=== PATIENT | male | born 1980 | race Caucasian/White ===

== ENCOUNTER 2017-08-17 20:02 | Observation (INO) | payer SELFPAY ==
[~2017-08-17] VITALS: Ht 170.2 cm; Wt 62.2 kg
--- NOTE | 2017-08-17 20:13 | ED.ADGEN ---
Past History Past Medical History: Alcoholism, Other Adult General Chief Complaint Chief Complaint " Fuck it..." HPI HPI Patient is a 36 year old male who presents with above hx early release from [facility] today and then failing to show for court this afternoon.. Pt. was found passed out on lawn by concerned citizen. Pt. admits to heavy ETOH use today. Pt combative with paramedics and nursing staff. Pt. has past hx of Polysubstance abuse. Review of Systems Review of Systems Constitutional: Denies fever or chills [] Eyes: Denies change in visual acuity, redness, or eye pain [] HENT: Denies nasal congestion or sore throat [] Respiratory: Denies cough or shortness of breath [] Cardiovascular: No additional information not addressed in HPI [] GI: Denies abdominal pain, nausea, vomiting, bloody stools or diarrhea [] : Denies dysuria or hematuria [] Musculoskeletal: Denies back pain or joint pain [] Integument: Denies rash or skin lesions [] Neurologic: Denies headache, focal weakness or sensory changes [] Endocrine: Denies polyuria or polydipsia [] All other systems were reviewed and found to be within normal limits, except as documented in this note. Family History Family History Not currently available Current Medications Current Medications Current Medications Medications (Trade) Dose Ordered Sig/Hari Start Time Stop Time Status Last Admin Dose Admin Diphenhydramine HCl (Benadryl) 50 mg 1X ONCE 08/17/17 20:30 08/17/17 20:31 DC 08/17/17 20:36 50 MG Lorazepam (Ativan) 2 mg 1X ONCE 08/17/17 21:00 08/17/17 21:01 DC 08/17/17 20:41 2 MG Multivitamins/ Minerals 10 ml/ Folic Acid 1 mg/ Thiamine HCl 100 mg/Lactated Ringer's 1,011.1 ml @ 1,000 mls/ hr 1X ONCE 08/17/17 20:30 08/17/17 21:30 DC 08/17/17 20:37 1,000 MLS/HR Ondansetron HCl (Zofran) 4 mg PRN Q4HRS PRN 08/17/17 22:30 08/18/17 08:04 DC Potassium Chloride/Sodium Chloride 1,000 ml @ 75 mls/hr 1X ONCE 08/17/17 22:15 08/18/17 08:04 DC 08/17/17 23:53 75 MLS/HR Ziprasidone (Geodon Im) 20 mg 1X ONCE 08/17/17 20:30 08/17/17 20:31 DC 08/17/17 20:36 20 MG Allergies Allergies Allergies Coded Allergies Type Severity Reaction Last Updated Verified Unable to Assess 02/10/17 No Physical Exam Physical Exam Constitutional: no acute distress, intoxicated in appearance. Smell of alcoholic beverage. HENT: Normocephalic, atraumatic, bilateral external ears normal, oropharynx moist, no oral exudates, nose normal. [] Eyes: PERRLA, EOMI, conjunctiva mild injections, no discharge. [] Neck: Normal range of motion, no tenderness, supple, no stridor. [] Cardiovascular: Tachycardia Heart rate regular rhythm, no murmur [] Lungs & Thorax: Bilateral breath sounds equal at apex with scattered wheezes on auscultation [] Abdomen: Bowel sounds normal, soft, no tenderness, no masses, no pulsatile masses. [] Skin: Warm, dry, no erythema, no rash. [] Back: No tenderness, no CVA tenderness. [] Extremities: No tenderness, no cyanosis, no clubbing, ROM intact, no edema. [] Neurologic: Intoxicated in appearance, movers all ext. , responds to noxious sensory function, no gross focal deficits noted. Discoordinated. Psychologic: Affect depressed, , mood depressed. Current Patient Data Vital Signs Vital Signs Date Time Temp Pulse Resp B/P (MAP) Pulse Ox O2 Delivery O2 Flow Rate FiO2 08/17/17 22:30 72 24 115/63 (80) 98 Room Air 08/17/17 20:10 97.3 Lab Results Laboratory Tests Test 08/17/17 20:15 08/17/17 20:40 White Blood Count 5.0 x10^3/uL (4.0-11.0) Red Blood Count 4.52 x10^6/uL (4.30-5.70) Hemoglobin 14.2 g/dL (13.0-17.5) Hematocrit 40.6 % (39.0-53.0) Mean Corpuscular Volume 90 fL (79-100) Mean Corpuscular Hemoglobin 31 pg (25-35) Mean Corpuscular Hemoglobin Concent 35 g/dL (31-37) Red Cell Distribution Width 12.7 % (11.5-14.5) Platelet Count 319 x10^3/uL (140-400) Neutrophils (%) (Auto) 53 % (31-73) Lymphocytes (%) (Auto) 38 % (24-48) Monocytes (%) (Auto) 7 % (0-9) Eosinophils (%) (Auto) 1 % (0-3) Basophils (%) (Auto) 1 % (0-3) Neutrophils # (Auto) 2.7 x10^3uL (1.8-7.7) Lymphocytes # (Auto) 1.9 x10^3/uL (1.0-4.8) Monocytes # (Auto) 0.3 x10^3/uL (0.0-1.1) Eosinophils # (Auto) 0.1 x10^3/uL (0.0-0.7) Basophils # (Auto) 0.0 x10^3/uL (0.0-0.2) Prothrombin Time < 9.3 SEC (9.4-11.4) L Prothrombin Time INR 0.9 (0.9-1.1) PTT 23 SEC (23-33) Sodium Level 154 mmol/L (136-145) H Potassium Level 3.3 mmol/L (3.5-5.1) L Chloride Level 112 mmol/L (98-107) H Carbon Dioxide Level 30 mmol/L (21-32) Anion Gap 12 (6-14) Blood Urea Nitrogen 11 mg/dL (8-26) Creatinine 1.0 mg/dL (0.7-1.3) Estimated GFR (Cockcroft-Gault) 84.1 Glucose Level 114 mg/dL (70-99) H Lactic Acid Level 2.1 mmol/L (0.4-2.0) H Calcium Level 8.9 mg/dL (8.5-10.1) Magnesium Level 2.7 mg/dL (1.8-2.4) H Creatine Kinase 144 U/L (39-308) Creatine Kinase MB (Mass) 1.0 ng/mL (0.0-3.6) Creatine Kinase MB Relative Index 0.7 % (0-4) Troponin I Quantitative < 0.017 ng/mL (0-0.055) Ethyl Alcohol Level 370 mg/dL (0-10) H Urine Collection Type U cath Urine Color Straw Urine Clarity Clear Urine pH 5.5 Urine Specific [place] <=1.005 Urine Protein Neg (NEG-TRACE) Urine Glucose (UA) Neg mg/dL (NEG) Urine Ketones (Stick) Neg mg/dL (NEG) Urine Blood Neg (NEG) Urine Nitrite Neg (NEG) Urine Bilirubin Neg (NEG) Urine Urobilinogen Dipstick 0.2 mg/dL (0.2 mg/dL) Urine Leukocyte Esterase Neg (NEG) Urine RBC 0 /HPF (0-2) Urine WBC 0 /HPF (0-4) Urine Squamous Epithelial Cells Occ /LPF Urine Bacteria 0 /HPF (0-FEW) Urine Opiates Screen Neg (NEG) Urine Methadone Screen Neg (NEG) Urine Barbiturates Neg (NEG) Urine Phencyclidine Screen Neg (NEG) Urine Amphetamine/Methamphetamine Neg (NEG) Urine Benzodiazepines Screen Neg (NEG) Urine Cocaine Screen Neg (NEG) Urine Cannabinoids Screen Neg (NEG) Urine Ethyl Alcohol Pos (NEG) EKG EKG My interpretation of EKG shows a sinus rhythm at 74 bpm. No acute morphology Radiology/Procedures Radiology/Procedures I interpretation chest x-ray shows prominent pulmonary arteries. But no acute cardiopulmonary findings. No free air in the diaphragm.[] Course & Med Decision Making Course & Med Decision Making Pertinent Labs and Imaging studies reviewed. (See chart for details). Discussed presentation, testing and tx plan Dr. Conklin- will admit until clearing of mentation, and hydration. [] Final Impression Final Impression 1. Mental Status Change 2. Alcohol Abuse[]\\ 3. Hypo kalemia 4. Hypernatremia 5. Hyper magnesium 6. Elevated lactic acid Problems: Dragon Disclaimer Dragon Disclaimer This electronic medical record was generated, in whole or in part, using a voice recognition dictation system. REINALDO MORIN MD Aug 17, 2017 20:13
[2017-08-17] MEDS ORDERED: MVI, ADULT NO.4 WITH VIT K 10 ML, FOLIC ACID SYRINGE for ER 1 MG, THIAMINE 100 MG in IV... IV ONE ×4 (20:30)
[2017-08-17] MEDS ORDERED: diphenhydrAMINE 50 MG/ML VIAL IVP ONE (20:30)
[2017-08-17] MEDS ORDERED: ZIPRASIDONE IM 20 MG VIAL. IM ONE (20:30)
[2017-08-17 20:40] LABS: BASO % 1 % (0-3); EOS # 0.1 x10^3/uL (0.0-0.7); EOS % 1 % (0-3); HEMATOCRIT 40.6 % (39.0-53.0); HEMOGLOBIN 14.2 g/dL (13.0-17.5); LYMPH # 1.9 x10^3/uL (1.0-4.8); LYMPH % 38 % (24-48); MEAN CORPUSCULAR HEMOGLOBIN 31 pg (25-35); MEAN CORPUSCULAR HGB CONC 35 g/dL (31-37); MEAN CORPUSCULAR VOLUME 90 fL (79-100); MONO # 0.3 x10^3/uL (0.0-1.1); MONO % 7 % (0-9); NEUT # 2.7 x10^3uL (1.8-7.7); NEUT % 53 % (31-73); PLATELET COUNT 319 x10^3/uL (140-400); RED BLOOD COUNT 4.52 x10^6/uL (4.30-5.70); RED CELL DISTRIBUTION WIDTH 12.7 % (11.5-14.5)
[2017-08-17] MEDS ORDERED: LORazepam 2 MG/ML VIAL ONE (20:40)
[2017-08-17] MEDS ORDERED: LORazepam 2 MG/ML VIAL IV ONE (21:00)
[2017-08-17 21:02] LABS: CALCIUM 8.9 mg/dL (8.5-10.1); GFR 84.1; MAGNESIUM 2.7 mg/dL (1.8-2.4); POTASSIUM 3.3 mmol/L (3.5-5.1)
[2017-08-17 21:19] LABS: AMPHETAMINE/METHAMPHETAMINE NEG (NEG); BARBITURATES NEG (NEG); BENZODIAZEPINES NEG (NEG); CANNABINOIDS NEG (NEG); COCAINE NEG (NEG); METHADONE NEG (NEG); OPIATES NEG (NEG); PHENCYCLIDINE NEG (NEG)
[2017-08-17 21:23] LABS: BACTERIA,URINE 0 /HPF (0-FEW); BILIRUBIN,URINE NEG (NEG); CLARITY,URINE CLEAR; COLOR,URINE STRAW; GLUCOSE,URINE NEG (NEG); NITRITE,URINE NEG (NEG); RBC,URINE 0 /HPF (0-2); SQUAMOUS EPITHELIAL CELL,UR OCC /LPF; UROBILINOGEN,URINE 0.2 mg/dL (0.2 mg/dL); WBC,URINE 0 /HPF (0-4)
[2017-08-17] MEDS ORDERED: POTASSIUM CL 40MEQ IN 0.9%NACL 1,000 ML IV ONE (22:15)
--- NOTE | 2017-08-17 22:24 | RAD ---
CT Head W/O Contrast: History: Mental status change. Found lying outside local business today. Pt sedated for exam. Exam from 02/10/2017 sent for comparison Comparison: February 10, 2017 Axial images were obtained without contrast. The ventura and white matter appears normal and symmetrical for the patients age. There is no mass effect, extraaxial fluid collections or hydrocephalus. There is no gross bleed. There is no focal loss of ventura-white matter distinction to suggest acute ischemia, i.e. stroke. Impression: No acute findings. End impression CT C-Spine without contrast: Clinical History: Mental status change. Found lying outside local business today. Pt sedated for exam. Exam from 02/10/2017 sent for comparison Technique: Axial helical images of the cervical spine were obtained without contrast, axial coronal and sagittal reconstruction was performed. Findings: There is no loss of vertebral body stature. There is no prevertebral soft tissue swelling. The vertebral bodies are well aligned. The C1-C2 relationship is normal. The visualized osseous structures appear normal. There is straightening of the normal cervical lordosis which can be positional or can be secondary to muscle spasm. Evaluation of the central canal is limited without contrast. Impression: No acute findings. Clinical correlation suggested. PQRS Compliance Statement: One or more of the following individualized dose reduction techniques were utilized for this examination: 1. Automated exposure control 2. Adjustment of the mA and/or kV according to patient size 3. Use of iterative reconstruction technique Electronically signed by: Chris Reyes III, MD (08/17/2017 10:21 PM) [facility]
[2017-08-17] MEDS ORDERED: ONDANSETRON PF 4 MG/2 ML VIAL. IV PRN (22:30)
[2017-08-17] MEDS ORDERED: IV NORMAL SALINE 1,000ML 1,000 ML IV ONE ×2 (22:45)
--- NOTE | 2017-08-17 23:04 | EKG ---
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
[2017-08-18 00:45] VITALS: BP 99/65
[2017-08-18] MEDS ORDERED: LORazepam 2 MG/ML VIAL IV PRN ×2 (01:00)
[2017-08-18 02:40] VITALS: BP 100/55
[2017-08-18 04:18] VITALS: BP 99/53
[2017-08-18 05:40] VITALS: BP 103/57
--- NOTE | 2017-08-18 08:34 | PDOC1 ---
History of Present Illness Reason for Visit: Alcohol intoxication History of Present Illness Pt was admitted to me in the middle of the night from the ER. Several hours later he told the nursing staff that he was not staying and refused blood draws , etc. He left the hospital against medical advice as was reported to me by staff. I didn't have any direct contact with the patient. Chief Complaint: ALCOHOL INTOXICATION Allergies: Coded Allergies: Unable to Assess (Unverified , 02/10/17) MILVIA BOYLE - ALTERED MENTAL STATUS Review of Systems Allergies: Coded Allergies: Unable to Assess (Unverified , 02/10/17) MILVIA BOYLE - ALTERED MENTAL STATUS Medications Current Medications Multivitamins/ Minerals 10 ml/ Folic Acid 1 mg/ Thiamine HCl 100 mg/Lactated Ringer's 1,011.1 ml @ 1,000 mls/ hr 1X ONCE IV Last administered on 20:37; Start 08/17/17 at 20:30; Stop 08/17/17 at 21:30; Status DC Diphenhydramine HCl (Benadryl) 50 mg 1X ONCE IVP Last administered on 20:36; Start 08/17/17 at 20:30; Stop 08/17/17 at 20:31; Status DC Ziprasidone (Geodon Im) 20 mg 1X ONCE IM Last administered on 08/17/17 20:36 ; Start 08/17/17 at 20:30; Stop 08/17/17 at 20:31; Status DC Lorazepam (Ativan) 2 mg STK-MED ONCE .ROUTE ; Start 08/17/17 at 20:40; Stop at 20:41; Status DC Lorazepam (Ativan) 2 mg 1X ONCE IV Last administered on 08/17/17 20:41; Start 08/17/17 at 21:00; Stop 08/17/17 at 21:01; Status DC Potassium Chloride/Sodium Chloride 1,000 ml @ 75 mls/hr 1X ONCE IV Last administered on 08/17/17 23:53; Start 08/17/17 at 22:15; Stop 08/18/17 at 08 :04; Status DC Ondansetron HCl (Zofran) 4 mg PRN Q4HRS PRN IV NAUSEA/VOMITING; Start at 22:30; Stop 08/18/17 at 08:04; Status DC Sodium Chloride 1,000 ml @ 1,000 mls/hr 1X ONCE IV Last administered on 08/17t 21:30; Start 08/17/17 at 22:45; Stop 08/17/17 at 23:44; Status DC Sodium Chloride 1,000 ml @ 160 mls/hr 1X ONCE IV ; Start 08/17/17 at 22:45; Stop 08/18/17 at 04:59; Status DC Lorazepam (Ativan) 2 mg PRN Q1HR PRN IV For CIWA 8-14; Start 08/18/17 at 01:00 ; Stop 08/18/17 at 08:04; Status DC Lorazepam (Ativan) 4 mg PRN Q1HR PRN IV For CIWA 15 or greater; Start at 01:00; Stop 08/18/17 at 08:04; Status DC Exam Vital Signs Vital Signs Date Time Temp Pulse Resp B/P (MAP) Pulse Ox O2 Delivery O2 Flow Rate FiO2 08/18/17 05:40 83 20 103/57 (72) 95 Room Air 08/17/17 20:10 97.3 COURSE Allergies Coded Allergies Type Severity Reaction Last Updated Verified Unable to Assess 02/10/17 No Laboratory Tests Test 08/17/17 20:15 08/17/17 20:40 08/18/17 00:50 White Blood Count 5.0 x10^3/uL (4.0-11.0) Red Blood Count 4.52 x10^6/uL (4.30-5.70) Hemoglobin 14.2 g/dL (13.0-17.5) Hematocrit 40.6 % (39.0-53.0) Mean Corpuscular Volume 90 fL (79-100) Mean Corpuscular Hemoglobin 31 pg (25-35) Mean Corpuscular Hemoglobin Concent 35 g/dL (31-37) Red Cell Distribution Width 12.7 % (11.5-14.5) Platelet Count 319 x10^3/uL (140-400) Neutrophils (%) (Auto) 53 % (31-73) Lymphocytes (%) (Auto) 38 % (24-48) Monocytes (%) (Auto) 7 % (0-9) Eosinophils (%) (Auto) 1 % (0-3) Basophils (%) (Auto) 1 % (0-3) Neutrophils # (Auto) 2.7 x10^3uL (1.8-7.7) Lymphocytes # (Auto) 1.9 x10^3/uL (1.0-4.8) Monocytes # (Auto) 0.3 x10^3/uL (0.0-1.1) Eosinophils # (Auto) 0.1 x10^3/uL (0.0-0.7) Basophils # (Auto) 0.0 x10^3/uL (0.0-0.2) Prothrombin Time < 9.3 SEC (9.4-11.4) Prothromb Time International Ratio 0.9 (0.9-1.1) Activated Partial Thromboplast Time 23 SEC (23-33) Sodium Level 154 mmol/L (136-145) Potassium Level 3.3 mmol/L (3.5-5.1) Chloride Level 112 mmol/L (98-107) Carbon Dioxide Level 30 mmol/L (21-32) Anion Gap 12 (6-14) Blood Urea Nitrogen 11 mg/dL (8-26) Creatinine 1.0 mg/dL (0.7-1.3) Estimated GFR (Cockcroft-Gault) 84.1 Glucose Level 114 mg/dL (70-99) Lactic Acid Level 2.1 mmol/L (0.4-2.0) 2.3 mmol/L (0.4-2.0) Calcium Level 8.9 mg/dL (8.5-10.1) Magnesium Level 2.7 mg/dL (1.8-2.4) Creatine Kinase 144 U/L (39-308) Creatine Kinase MB (Mass) 1.0 ng/mL (0.0-3.6) Creatine Kinase MB Relative Index 0.7 % (0-4) Troponin I Quantitative < 0.017 ng/mL (0-0.055) Ethyl Alcohol Level 370 mg/dL (0-10) Urine Collection Type U cath Urine Color Straw Urine Clarity Clear Urine pH 5.5 Urine Specific [place] <=1.005 Urine Protein Neg (NEG-TRACE) Urine Glucose (UA) Neg mg/dL (NEG) Urine Ketones (Stick) Neg mg/dL (NEG) Urine Blood Neg (NEG) Urine Nitrite Neg (NEG) Urine Bilirubin Neg (NEG) Urine Urobilinogen Dipstick 0.2 mg/dL (0.2 mg/dL) Urine Leukocyte Esterase Neg (NEG) Urine RBC 0 /HPF (0-2) Urine WBC 0 /HPF (0-4) Urine Squamous Epithelial Cells Occ /LPF Urine Bacteria 0 /HPF (0-FEW) Urine Opiates Screen Neg (NEG) Urine Methadone Screen Neg (NEG) Urine Barbiturates Neg (NEG) Urine Phencyclidine Screen Neg (NEG) Urine Amphetamine/Methamphetamine Neg (NEG) Urine Benzodiazepines Screen Neg (NEG) Urine Cocaine Screen Neg (NEG) Urine Cannabinoids Screen Neg (NEG) Urine Ethyl Alcohol Pos (NEG) Current Medications Medications (Trade) Dose Ordered Sig/Hari Route PRN Reason Start Time Stop Time Status Last Admin Dose Admin Multivitamins/ Minerals 10 ml/ Folic Acid 1 mg/ Thiamine HCl 100 mg/Lactated Ringer's 1,011.1 ml @ 1,000 mls/ hr 1X ONCE IV 08/17/17 20:30 08/17/17 21:30 DC 08/17/17 20:37 Diphenhydramine HCl (Benadryl) 50 mg 1X ONCE IVP 08/17/17 20:30 08/17/17 20:31 DC 08/17/17 20:36 Ziprasidone (Geodon Im) 20 mg 1X ONCE IM 08/17/17 20:30 08/17/17 20:31 DC 08/17/17 20:36 Lorazepam (Ativan) 2 mg STK-MED ONCE .ROUTE 08/17/17 20:40 08/17/17 20:41 DC Lorazepam (Ativan) 2 mg 1X ONCE IV 08/17/17 21:00 08/17/17 21:01 DC 08/17/17 20:41 Potassium Chloride/Sodium Chloride 1,000 ml @ 75 mls/hr 1X ONCE IV 08/17/17 22:15 08/18/17 08:04 DC 08/17/17 23:53 Ondansetron HCl (Zofran) 4 mg PRN Q4HRS PRN IV NAUSEA/VOMITING 08/17/17 22:30 08/18/17 08:04 DC Sodium Chloride 1,000 ml @ 1,000 mls/hr 1X ONCE IV 08/17/17 22:45 08/17/17 23:44 DC 08/17/17 21:30 Sodium Chloride 1,000 ml @ 160 mls/hr 1X ONCE IV 08/17/17 22:45 08/18/17 04:59 DC Lorazepam (Ativan) 2 mg PRN Q1HR PRN IV For CIWA 8-14 08/18/17 01:00 08/18/17 08:04 DC Lorazepam (Ativan) 4 mg PRN Q1HR PRN IV For CIWA 15 or greater 08/18/17 01:00 08/18/17 08:04 DC I & O 08/18/17 00:00 Intake Total 3241.1 ml Balance 3241.1 ml Orders Procedure Category Date Status Time Vital Signs ER 08/17/17 Transmitted 20:14 Bp Monitoring ER 08/17/17 Transmitted 20:14 Executive Director Sheltered Workshop ER 08/17/17 Transmitted 20:14 Continuous Pulse ER 08/17/17 Transmitted Oximetry 20:14 Temperature Monitoring ER 08/17/17 Transmitted 20:14 Saline Lock ER 08/17/17 Transmitted 20:14 Landa Catheter ER 08/17/17 Transmitted Insertion 20:14 Basic Metabolic Panel LAB 08/17/17 Complete 20:14 Cbc W Autodiff LAB 08/17/17 Complete 20:14 Ua, Cult If Indicated LAB 08/17/17 Complete 20:14 Drugs Of Abuse Ur LAB 08/17/17 Complete 20:14 Portable Chest 1v RAD 08/17/17 Taken 20:14 12 Lead Ekg EKG 08/17/17 Complete 20:14 Protime LAB 08/17/17 Complete 20:14 Partial LAB 08/17/17 Complete Thromboplastin Time 20:14 Creatine Kinase LAB 08/17/17 Complete 20:14 Ckmb Isoenzymes LAB 08/17/17 Complete 20:14 Troponin I LAB 08/17/17 Complete 20:14 Magnesium LAB 08/17/17 Complete 20:14 Ethanol LAB 08/17/17 Complete 20:14 Restraint BITA 08/17/17 Complete Violent/Self Destruc 20:14 Mvi, Adult No.4 With PHA 08/17/17 Complete Vit K (Infuvite Fortino 20:30 Lactic Acid LAB 08/17/17 Complete 20:18 Blood Culture ABI 08/17/17 In Process 20:18 Diphenhydramine PHA 08/17/17 Complete (Benadryl) 20:30 Ziprasidone Im PHA 08/17/17 Complete (Geodon Im) 20:30 Lorazepam (Ativan) [facility] 08/17/17 Complete 20:40 Ct Head [address] Cervical CT 08/17/17 Resulted Spine Wo 20:14 Lorazepam (Ativan) [facility] 08/17/17 Complete 21:00 Potassium Cl 40meq In [facility] 08/17/17 Complete 0.9%Nacl (Kcl 40 M 22:15 [place] Order ADT 08/17/17 Transmitted 22:29 Code Status CODE 08/17/17 Transmitted 22:29 Vital Signs, Per [facility] 08/17/17 Complete Protocol 22:29 Ambulate With [facility] 08/17/17 Complete Assistance 22:29 Up In Chair With [facility] 08/17/17 Complete Assistance 22:29 Fall Precautions [facility] 08/17/17 Complete 22:29 Ondansetron Pf [facility] 08/17/17 Complete (Zofran) 22:30 Lactic Acid LAB 08/18/17 Complete 00:29 Incentive Spirometer RT 08/17/17 Logged No Pneumatic [facility] 08/17/17 Complete Compression Devic 22:29 Iv Normal Saline [facility] 08/17/17 Complete 1,000ml (Iv Sodium 22:45 Iv Normal Saline [facility] 08/17/17 Complete 1,000ml (Iv Sodium 22:45 Admit Orders [facility] 08/17/17 Transmitted 23:57 Mrsa By Pcr LAB 08/17/17 In Process 23:57 Lorazepam (Ativan) [facility] 08/18/17 Complete 01:00 Lorazepam (Ativan) [facility] 08/18/17 Complete 01:00 Vital Signs, Per [facility] 08/18/17 Complete Protocol 00:58 Vital Signs Date Time Temp Pulse Resp B/P (MAP) Pulse Ox O2 Delivery O2 Flow Rate FiO2 08/18/17 05:40 83 20 103/57 (72) 95 Room Air 08/17/17 20:10 97.3 ADAM LOAIZA MD Aug 18, 2017 08:34
--- NOTE | 2017-08-18 08:37 | PDOC3 ---
Discharge Summary Visit Information Date of Admission: Aug 17, 2017 Date of Discharge: Aug 18, 2017 Admitting Diagnosis: Acute alcohol intoxication Final Diagnosis Problems Medical Problems: (1) Alcohol intoxication Status: Acute (2) Hypernatremia Status: Acute Problems: Brief Hospital Course Allergies Allergies Coded Allergies Type Severity Reaction Last Updated Verified Unable to Assess 02/10/17 No Vital Signs Vital Signs Date Time Temp Pulse Resp B/P (MAP) Pulse Ox O2 Delivery O2 Flow Rate FiO2 08/18/17 05:40 83 20 103/57 (72) 95 Room Air 08/17/17 20:10 97.3 Lab Results Laboratory Tests Test 08/17/17 20:15 08/17/17 20:40 08/18/17 00:50 White Blood Count 5.0 x10^3/uL (4.0-11.0) Red Blood Count 4.52 x10^6/uL (4.30-5.70) Hemoglobin 14.2 g/dL (13.0-17.5) Hematocrit 40.6 % (39.0-53.0) Mean Corpuscular Volume 90 fL (79-100) Mean Corpuscular Hemoglobin 31 pg (25-35) Mean Corpuscular Hemoglobin Concent 35 g/dL (31-37) Red Cell Distribution Width 12.7 % (11.5-14.5) Platelet Count 319 x10^3/uL (140-400) Neutrophils (%) (Auto) 53 % (31-73) Lymphocytes (%) (Auto) 38 % (24-48) Monocytes (%) (Auto) 7 % (0-9) Eosinophils (%) (Auto) 1 % (0-3) Basophils (%) (Auto) 1 % (0-3) Neutrophils # (Auto) 2.7 x10^3uL (1.8-7.7) Lymphocytes # (Auto) 1.9 x10^3/uL (1.0-4.8) Monocytes # (Auto) 0.3 x10^3/uL (0.0-1.1) Eosinophils # (Auto) 0.1 x10^3/uL (0.0-0.7) Basophils # (Auto) 0.0 x10^3/uL (0.0-0.2) Prothrombin Time < 9.3 SEC (9.4-11.4) Prothromb Time International Ratio 0.9 (0.9-1.1) Activated Partial Thromboplast Time 23 SEC (23-33) Sodium Level 154 mmol/L (136-145) Potassium Level 3.3 mmol/L (3.5-5.1) Chloride Level 112 mmol/L (98-107) Carbon Dioxide Level 30 mmol/L (21-32) Anion Gap 12 (6-14) Blood Urea Nitrogen 11 mg/dL (8-26) Creatinine 1.0 mg/dL (0.7-1.3) Estimated GFR (Cockcroft-Gault) 84.1 Glucose Level 114 mg/dL (70-99) Lactic Acid Level 2.1 mmol/L (0.4-2.0) 2.3 mmol/L (0.4-2.0) Calcium Level 8.9 mg/dL (8.5-10.1) Magnesium Level 2.7 mg/dL (1.8-2.4) Creatine Kinase 144 U/L (39-308) Creatine Kinase MB (Mass) 1.0 ng/mL (0.0-3.6) Creatine Kinase MB Relative Index 0.7 % (0-4) Troponin I Quantitative < 0.017 ng/mL (0-0.055) Ethyl Alcohol Level 370 mg/dL (0-10) Urine Collection Type U cath Urine Color Straw Urine Clarity Clear Urine pH 5.5 Urine Specific [place] <=1.005 Urine Protein Neg (NEG-TRACE) Urine Glucose (UA) Neg mg/dL (NEG) Urine Ketones (Stick) Neg mg/dL (NEG) Urine Blood Neg (NEG) Urine Nitrite Neg (NEG) Urine Bilirubin Neg (NEG) Urine Urobilinogen Dipstick 0.2 mg/dL (0.2 mg/dL) Urine Leukocyte Esterase Neg (NEG) Urine RBC 0 /HPF (0-2) Urine WBC 0 /HPF (0-4) Urine Squamous Epithelial Cells Occ /LPF Urine Bacteria 0 /HPF (0-FEW) Urine Opiates Screen Neg (NEG) Urine Methadone Screen Neg (NEG) Urine Barbiturates Neg (NEG) Urine Phencyclidine Screen Neg (NEG) Urine Amphetamine/Methamphetamine Neg (NEG) Urine Benzodiazepines Screen Neg (NEG) Urine Cocaine Screen Neg (NEG) Urine Cannabinoids Screen Neg (NEG) Urine Ethyl Alcohol Pos (NEG) Brief Hospital Course Mr. Rico was admitted through the ER in the middle of the night. He was sedated (per ER) from excessive alcohol intoxication. He was placed on the withdrawal protocol with plans to observe him overnight. This morning, per staff, pt refused blood draws and refused to stay in hospital. He left the hospital against medical advice. I did not have any direct contact with him, he refused to stay until I rounded in the morning. Discharge Information Dischare Medications Current Medications Multivitamins/ Minerals 10 ml/ Folic Acid 1 mg/ Thiamine HCl 100 mg/Lactated Ringer's 1,011.1 ml @ 1,000 mls/ hr 1X ONCE IV Last administered on 20:37; Start 08/17/17 at 20:30; Stop 08/17/17 at 21:30; Status DC Diphenhydramine HCl (Benadryl) 50 mg 1X ONCE IVP Last administered on 20:36; Start 08/17/17 at 20:30; Stop 08/17/17 at 20:31; Status DC Ziprasidone (Geodon Im) 20 mg 1X ONCE IM Last administered on 08/17/17 20:36 ; Start 08/17/17 at 20:30; Stop 08/17/17 at 20:31; Status DC Lorazepam (Ativan) 2 mg STK-MED ONCE .ROUTE ; Start 08/17/17 at 20:40; Stop at 20:41; Status DC Lorazepam (Ativan) 2 mg 1X ONCE IV Last administered on 08/17/17 20:41; Start 08/17/17 at 21:00; Stop 08/17/17 at 21:01; Status DC Potassium Chloride/Sodium Chloride 1,000 ml @ 75 mls/hr 1X ONCE IV Last administered on 08/17/17 23:53; Start 08/17/17 at 22:15; Stop 08/18/17 at 08 :04; Status DC Ondansetron HCl (Zofran) 4 mg PRN Q4HRS PRN IV NAUSEA/VOMITING; Start at 22:30; Stop 08/18/17 at 08:04; Status DC Sodium Chloride 1,000 ml @ 1,000 mls/hr 1X ONCE IV Last administered on 12/15 /17at 21:30; Start 08/17/17 at 22:45; Stop 08/17/17 at 23:44; Status DC Sodium Chloride 1,000 ml @ 160 mls/hr 1X ONCE IV ; Start 08/17/17 at 22:45; Stop 08/18/17 at 04:59; Status DC Lorazepam (Ativan) 2 mg PRN Q1HR PRN IV For CIWA 8-14; Start 08/18/17 at 01:00 ; Stop 08/18/17 at 08:04; Status DC Lorazepam (Ativan) 4 mg PRN Q1HR PRN IV For CIWA 15 or greater; Start at 01:00; Stop 08/18/17 at 08:04; Status DC ADAM LOAIZA MD Aug 18, 2017 08:37
--- NOTE | 2017-08-18 08:40 | RAD ---
Single view chest 08/17/2017 Clinical indication: Altered mental status. Comparison: Single view chest 02/10/2017. Findings: Cardiac and mediastinal silhouettes are unremarkable. No pleural effusion, pneumothorax or focal consolidation. Impression: No acute cardiopulmonary abnormality.
== END 2017-08-18 06:40 | disposition home or self-care (01) ==
LOC: ER 20:02 → MERGE 22:30 → ICU 22:30
PROVIDERS: ADMIT Family Medicine; ATTEND Family Medicine
DX: F10.129 Alcohol abuse with intoxication, unspecified (principal); R41.82 Altered mental status, unspecified; E83.41 Hypermagnesemia; E87.0 Hyperosmolality and hypernatremia; E87.6 Hypokalemia
CPT/HCPCS: 36415; 51702; 70450; 71010; 72125; 80048; 80307; 81001; 82553; 83605; 83735; 84484; 85025; 85610; 85730; 87040; 87641; 93005; 96361; 96365; 96366; 96367; 96372; 96375; 99285; G0238; G0378; G0379; G0480; J1200; J2060; J3486; J7120; G0479; J7030

== ENCOUNTER 2017-08-18 13:39 | Inpatient (IN) | payer SELFPAY ==
[2017-08-18] MEDS ORDERED: IV NORMAL SALINE 1,000ML 1,000 ML IV SCH (13:46)
[2017-08-18] MEDS ORDERED: THIAMINE 100 MG TABLET. PO ONE (14:00)
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
--- NOTE | 2017-08-18 14:05 | EKG ---
[address] [address] Test Date: 2017-08-18 Test Time: 13:59:31 Pat Name: YAAKOV MORRISON Department: Room: Gender: M Header Dock: GARY : 1980 Requested By: LOLA PEREZ Order Number: [id number] Reading MD: Measurements Intervals [place] Rate: 64 P: 30 NH: 162 QRS: 70 QRSD: 110 T: 54 QT: 396 QTc: 413 Interpretive Statements SINUS RHYTHM CONSIDER LEFT VENTRICULAR HYPERTROPHY POSSIBLY ABNORMAL ECG RI6.01 Unconfirmed report No previous ECG available for comparison
[2017-08-18 14:33] LABS: BASO # 0.1 x10^3/uL (0.0-0.2); BASO % 1 % (0-3); EOS # 0.1 x10^3/uL (0.0-0.7); EOS % 1 % (0-3); HEMATOCRIT 36.7 % (39.0-53.0); HEMOGLOBIN 12.9 g/dL (13.0-17.5); LYMPH # 2.1 x10^3/uL (1.0-4.8); LYMPH % 31 % (24-48); MEAN CORPUSCULAR HEMOGLOBIN 31 pg (25-35); MEAN CORPUSCULAR HGB CONC 35 g/dL (31-37); MEAN CORPUSCULAR VOLUME 89 fL (79-100); MONO # 0.4 x10^3/uL (0.0-1.1); MONO % 6 % (0-9); NEUT # 4.2 x10^3uL (1.8-7.7); NEUT % 61 % (31-73); PLATELET COUNT 299 x10^3/uL (140-400); RED BLOOD COUNT 4.12 x10^6/uL (4.30-5.70); RED CELL DISTRIBUTION WIDTH 13.1 % (11.5-14.5); WHITE BLOOD COUNT 6.8 x10^3/uL (4.0-11.0)
[2017-08-18 14:45] LABS: ALBUMIN 3.9 g/dL (3.4-5.0); CALCIUM 8.7 mg/dL (8.5-10.1); CREATININE 0.7 mg/dL (0.7-1.3); DIRECT BILIRUBIN 0.1 mg/dL (0.0-0.2); GFR 126.9; TOTAL BILIRUBIN 0.2 mg/dL (0.2-1.0); TOTAL PROTEIN 7.1 g/dL (6.4-8.2)
[2017-08-18 14:47] LABS: SALIC 1.3 mg/dL (2.8-20.0)
[2017-08-18 14:50] LABS: ETHANOL 318 mg/dL (0-10)
[2017-08-18 14:51] LABS: ACETAMIN < 2 mcg/mL (10-30)
[2017-08-18] MEDS ORDERED: ZIPRASIDONE IM 20 MG VIAL. IM ONE ×2 (15:40→15:45)
[2017-08-18 17:55] VITALS: BP 135/68
== END 2017-08-18 19:00 | disposition left against medical advice (07) | DRG 894 ==
LOC: ER 13:39 → ICU 16:19
PROVIDERS: ADMIT Family Medicine; ATTEND Family Medicine
DX: F10.229 Alcohol dependence with intoxication, unspecified (principal); F20.9 Schizophrenia, unspecified; F17.210 Nicotine dependence, cigarettes, uncomplicated; F29 Unspecified psychosis not due to a substance or known physiological condition; Y90.0 Blood alcohol level of less than 20 mg/100 ml; Z53.21 Procedure and treatment not carried out due to patient leaving prior to being seen by health care provider
CPT/HCPCS: 36415; 80048; 80076; 85025; 93005; G0480; J3486

== ENCOUNTER 2019-11-26 02:05 | Emergency (ER) | payer SELFPAY ==
[~2019-11-26] VITALS: Ht 170.2 cm; Wt 65.0 kg
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
--- NOTE | 2019-11-26 03:08 | RAD ---
PORTABLE CHEST 1V INDICATION: Chest pain, intoxication. COMPARISON STUDY: 10/11/2014. FINDINGS: Lungs: Low lung volume. No pulmonary mass or consolidation. The tracheobronchial tree and hilar structures are normal. Pleura: No pleural effusion or pneumothorax. Heart and Mediastinum: The cardiomediastinal silhouette is normal. The great vessels of the thorax are normal. IMPRESSION: Low lung volume. No consolidation. Electronically signed by: Davion Seay MD (11/26/2019 3:05 AM) [id number]
[2019-11-26] MEDS ORDERED: IV RINGERS SOLUTION,LACTATED 1,000 ML IV SCH (03:30)
[2019-11-26 05:17] LABS: BASO # 0.1 x10^3/uL (0.0-0.2); BASO % 1 % (0-3); EOS # 0.2 x10^3/uL (0.0-0.7); EOS % 2 % (0-3); HEMATOCRIT 46.4 % (39.0-53.0); HEMOGLOBIN 15.8 g/dL (13.0-17.5); LYMPH # 3.1 x10^3/uL (1.0-4.8); LYMPH % 31 % (24-48); MEAN CORPUSCULAR HEMOGLOBIN 31 pg (25-35); MEAN CORPUSCULAR HGB CONC 34 g/dL (31-37); MEAN CORPUSCULAR VOLUME 90 fL (79-100); MONO % 10 % (0-9); NEUT # 5.6 x10^3uL (1.8-7.7); NEUT % 56 % (31-73); PLATELET COUNT 340 x10^3/uL (140-400); RED BLOOD COUNT 5.14 x10^6/uL (4.30-5.70); RED CELL DISTRIBUTION WIDTH 13.2 % (11.5-14.5)
[2019-11-26 05:25] LABS: CALCIUM 9.7 mg/dL (8.5-10.1); CREATININE 0.9 mg/dL (0.7-1.3); GFR 93.9; POTASSIUM 3.7 mmol/L (3.5-5.1)
[2019-11-26 05:33] LABS: ALBUMIN 4.2 g/dL (3.4-5.0); DIRECT BILIRUBIN 0.1 mg/dL (0.0-0.2); MAGNESIUM 2.4 mg/dL (1.8-2.4); TOTAL BILIRUBIN 0.7 mg/dL (0.2-1.0); TOTAL PROTEIN 7.5 g/dL (6.4-8.2)
[2019-11-26 05:47] LABS: BARBITURATES NEG (NEG); BENZODIAZEPINES NEG (NEG); CANNABINOIDS NEG (NEG); COCAINE NEG (NEG); METHADONE NEG (NEG); OPIATES NEG (NEG); PHENCYCLIDINE NEG (NEG)
[2019-11-26 05:52] LABS: BACTERIA,URINE 0 /HPF (0-FEW); BILIRUBIN,URINE NEG (NEG); CLARITY,URINE CLEAR; COLOR,URINE YELLOW; GLUCOSE,URINE NEG (NEG); NITRITE,URINE NEG (NEG); RBC,URINE 0 /HPF (0-2); SQUAMOUS EPITHELIAL CELL,UR OCC /LPF; UROBILINOGEN,URINE 0.2 mg/dL (0.2 mg/dL); WBC,URINE OCC /HPF (0-4)
[2019-11-26 05:54] LABS: AMPHETAMINE/METHAMPHETAMINE POS (NEG)
[2019-11-26 06:25] VITALS: BP 116/72
== END 2019-11-26 06:02 | disposition home or self-care (01) ==
LOC: ER 02:05
DX: R45.1 Restlessness and agitation (principal); F20.9 Schizophrenia, unspecified; F19.10 Other psychoactive substance abuse, uncomplicated; F10.229 Alcohol dependence with intoxication, unspecified; F12.10 Cannabis abuse, uncomplicated; F15.10 Other stimulant abuse, uncomplicated; Z91.19 Patient's noncompliance with other medical treatment and regimen; Y90.6 Blood alcohol level of 120-199 mg/100 ml
CPT/HCPCS: 36415; 71045; 80048; 80076; 80307; 81001; 82550; 82947; 83690; 83735; 84443; 84484; 85025; 85610; 85730; 86705; 86709; 86803; 87040; 87340; 99284; G0480

== ENCOUNTER 2020-08-11 22:23 | Emergency (ER) | payer SELFPAY ==
[~2020-08-11] VITALS: Ht 167.6 cm; Wt 63.9 kg
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
[2020-08-11 22:29] VITALS: BP 151/65
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
[2020-08-11] MEDS ORDERED: KETOROLAC 60 MG/2 ML VIAL. IM ONE (23:30)
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
== END 2020-08-11 23:40 | disposition home or self-care (01) ==
LOC: ER 22:23
DX: S42.031A Displaced fracture of lateral end of right clavicle, initial encounter for closed fracture (principal); S00.81XA Abrasion of other part of head, initial encounter; F10.20 Alcohol dependence, uncomplicated; F20.9 Schizophrenia, unspecified; F17.200 Nicotine dependence, unspecified, uncomplicated; F15.10 Other stimulant abuse, uncomplicated; F12.10 Cannabis abuse, uncomplicated; Y90.9 Presence of alcohol in blood, level not specified; W03.XXXA Other fall on same level due to collision with another person, initial encounter; Y93.89 Activity, other specified; Y92.89 Other specified places as the place of occurrence of the external cause; Y99.8 Other external cause status
CPT/HCPCS: 71046; 73030; 96372; 99284; J1885

== ENCOUNTER 2020-08-21 18:55 | Emergency (ER) | payer SELFPAY ==
[~2020-08-21] VITALS: Ht 167.6 cm; Wt 64.4 kg
[2020-08-21 19:05] VITALS: BP 126/72
--- NOTE | 2020-08-21 19:14 | PHYS DOC ---
Past History Past Medical History: Alcoholism, Anxiety, Seizure, Schizophrenia, Other Additional Past Medical Histor: PT WOULD NOT GIVE HISTORY Past Surgical History: No Surgical History, Other Smoking: Less than 1pk/day Alcohol Use: Occasionally Drug Use: Amphetamine, Marijuana, Methamphetamine, Other Adult General Chief Complaint Chief Complaint: SHOULDER INJURY [facility] HPI Patient is a 39-year-old male who presents for right shoulder pain. Patient was seen and evaluated our facility 10 days ago after suffering a fall to his right shoulder. Was found to have a nondisplaced comminuted fracture of his right clavicle. He was placed in a splint and advised to follow-up in outpatient setting. Nonetheless, she has not done this as he is homeless. States he has taken intermittent Tylenol for pain with moderate improvement in symptoms. He has increased range of motion since initial injury. He reports today, roughly 4 hours prior to arrival suffering a mechanical fall and falling on his posterior right shoulder. This caused him acute pain. He has not taken anything for this. No new palpable abnormalities or changes in range of motion versus recent baseline. He is here today for evaluation and asking for a pain shot Review of Systems Review of Systems Fourteen body systems of review of systems have been reviewed. See HPI for pertinent positives and negative responses, other duran all other systems are negative, non-pertinent or non-contributory Allergies Allergies Allergies Coded Allergies Type Severity Reaction Last Updated Verified No Known Drug Allergies 08/11/20 No Physical Exam Physical Exam Constitutional: Pt is oriented to person, place, and time. Pt appears well nourished, poor hygiene HEENT: Head: Normocephalic and atraumatic. External ears unremarkable Conjunctivae and EOM are normal. Pupils are equal, round, and reactive to light. Oropharynx is clear and moist. No hematomas or lacerations or abrasions to face or scalp OP clear, no blood, no malocclusion, dentition intact Nares clear, no nasal septal hematoma Midface stable Neck: C-spine midline nontender, no step-offs Cardiovascular: Normal rate, regular rhythm and normal heart sounds. Pulmonary/Chest: Effort normal and breath sounds normal. No respiratory distress. No wheezes. CTA bilaterally Abdominal: Soft. Bowel sounds are normal. Pt exhibits no distension. There is no tenderness. Musculoskeletal: Bony tenderness to right anterior clavicle with palpable abnormality present consistent with recent comminuted fracture diagnosed 10 days ago Patient has impressive range of motion of right upper extremity given recent comminuted fracture, able to a duct, abduct, flex and extend in addition to internally and externally rotate with mild decrease in range of motion due to pain only No palpable abnormalities or visual abnormalities of right posterior shoulder where patient fell Chest wall stable Pelvis stable and non-tender No vertebral TTP and spine without stepoffs Neurological: Pt is alert and oriented to person, place, and time. Moving all extremities willfully, able to wiggle all fingers and toes Alert and oriented x 3 Sensation grossly intact Skin: Skin is warm and dry. No lacerations. Patient has numerous abrasions and excoriations on scattered areas of his body Psychiatric: Behavior is appropriate for situation Current Patient Data Vital Signs Vital Signs Date Time Temp Pulse Resp B/P (MAP) Pulse Ox O2 Delivery O2 Flow Rate FiO2 08/21/20 19:05 97.5 83 20 126/72 (90) 97 Room Air EKG EKG [] Radiology/Procedures Radiology/Procedures [] Heart Score Risk Factors: Risk Factors: DM, Current or recent (<one month) smoker, HTN, HLP, family history of CAD, obesity. Risk Scores: Risk Factors: DM, Current or recent (<one month) smoker, HTN, HLP, family history of CAD, obesity. Course & Med Decision Making Course & Med Decision Making Pertinent Labs and Imaging studies reviewed. (See chart for details) No indication for head and/or neck imaging No obvious indication for repeat imaging of right upper extremity given comprehensive history and physical exam findings Patient asking for pain shot, 15 mg IM Toradol administered Patient advised to take NSAIDs and/or Tylenol which are cheap and affordable OTC medications with prior splint instructions and outpatient follow-up advised Strict return precautions were discussed with good understanding by patient, all questions and concerns addressed prior to ER departure in stable condition Dragon Disclaimer Dragon Disclaimer This electronic medical record was generated, in whole or in part, using a voice recognition dictation system. Departure Departure: Impression: Primary Impression: Fall Additional Impression: Closed right clavicular fracture Disposition: 01 DC HOME SELF CARE/HOMELESS Condition: STABLE Referrals: [facility] (PCP) MILVIA LINDSEY MD Patient Instructions: Clavicle Fracture, Clavicle Fracture (Shaft) with Rehab- [facility] Additional Instructions: You were seen for sequelae of a fracture or broken bone. As discussed you need to be seen in the orthopedic clinic. Their information is attached to your discharge packet. If you were provided a splint use this as directed. You should not use the affected body part until you follow up with orthopedics. Keep the area clean, dry, and avoid getting it wet. You should use ice, NSAIDs and/or Tylenol, and elevation to help with swelling and pain. Return to the ED if you develop worsening pain, numbness, tingling, weakness, fever, redness, or any other new or concerning symptoms. Problem Qualifiers DARLIN COYLE DO Aug 21, 2020 19:14
[2020-08-21] MEDS ORDERED: KETOROLAC 15 MG/ML VIAL. IM ONE (19:45)
== END 2020-08-21 19:45 | disposition home or self-care (01) ==
LOC: ER 18:55
DX: S42.001A Fracture of unspecified part of right clavicle, initial encounter for closed fracture (principal); F20.9 Schizophrenia, unspecified; F41.9 Anxiety disorder, unspecified; F10.10 Alcohol abuse, uncomplicated; F19.90 Other psychoactive substance use, unspecified, uncomplicated; F17.200 Nicotine dependence, unspecified, uncomplicated; W18.39XA Other fall on same level, initial encounter; Y93.89 Activity, other specified; Y92.89 Other specified places as the place of occurrence of the external cause; Y99.8 Other external cause status
CPT/HCPCS: 96372; 99283; J1885

== ENCOUNTER 2021-04-22 19:40 | Emergency (ER) | payer SELFPAY ==
[~2021-04-22] VITALS: Ht 170.2 cm; Wt 58.5 kg
[2021-04-22 19:43] VITALS: BP 126/49
[2021-04-22 20:15] LABS: BASO % 1 % (0-3); EOS # 0.1 x10^3/uL (0.0-0.7); EOS % 1 % (0-3); HEMATOCRIT 40.3 % (39.0-53.0); HEMOGLOBIN 13.8 g/dL (13.0-17.5); LYMPH # 1.8 x10^3/uL (1.0-4.8); LYMPH % 25 % (24-48); MEAN CORPUSCULAR HEMOGLOBIN 31 pg (25-35); MEAN CORPUSCULAR HGB CONC 34 g/dL (31-37); MEAN CORPUSCULAR VOLUME 89 fL (79-100); MONO # 0.6 x10^3/uL (0.0-1.1); MONO % 9 % (0-9); NEUT # 4.8 x10^3uL (1.8-7.7); NEUT % 65 % (31-73); PLATELET COUNT 292 x10^3/uL (140-400); RED BLOOD COUNT 4.52 x10^6/uL (4.30-5.70); RED CELL DISTRIBUTION WIDTH 13.3 % (11.5-14.5); WHITE BLOOD COUNT 7.4 x10^3/uL (4.0-11.0)
[2021-04-22 20:23] LABS: CREATININE 0.9 mg/dL (0.7-1.3); POTASSIUM 3.7 mmol/L (3.5-5.1)
[2021-04-22 20:28] LABS: ALBUMIN 4.2 g/dL (3.4-5.0); ALBUMIN/GLOBULIN RATIO 1.4 (1.0-1.7); TOTAL BILIRUBIN 0.7 mg/dL (0.2-1.0); TOTAL PROTEIN 7.1 g/dL (6.4-8.2)
[2021-04-22 20:54] LABS: BARBITURATES NEG (NEG); BENZODIAZEPINES NEG (NEG); CANNABINOIDS NEG (NEG); COCAINE NEG (NEG); METHADONE NEG (NEG); OPIATES NEG (NEG); PHENCYCLIDINE NEG (NEG)
[2021-04-22 21:00] LABS: AMPHETAMINE/METHAMPHETAMINE NEG (NEG)
[2021-04-22 21:09] LABS: BILIRUBIN,URINE NEG (NEG); CLARITY,URINE CLEAR; COLOR,URINE YELLOW; GLUCOSE,URINE NEG (NEG)
[2021-04-22 21:10] LABS: BACTERIA,URINE 0 /HPF (0-FEW); NITRITE,URINE NEG (NEG); RBC,URINE 0 /HPF (0-2); SQUAMOUS EPITHELIAL CELL,UR OCC /LPF; UROBILINOGEN,URINE 0.2 mg/dL (0.2 mg/dL); WBC,URINE 0 /HPF (0-4)
--- NOTE | 2021-04-22 21:22 | PHYS DOC ---
Past History Past Medical History: No Pertinent History Additional Past Medical Histor: PT WOULD NOT GIVE HISTORY (PREETHI HOLGUIN APRN) Past Surgical History: No Surgical History Additional Past Surgical Histo: LEFT WRIST, RIGHT FOOT (PREETHI HOLGUIN APRN) Smoking: Less than 1pk/day Alcohol Use: None Drug Use: Amphetamine, Marijuana, Methamphetamine, Other (PREETHI HOLGUIN APRN) General Adult EDM: Chief Complaint: ALTERED MENTAL STATUS HPI: HPI: Patient is a 40-year-old male who presents after being found walking on the side of the road. EMS was called after patient had fallen. Patient has abrasions to bilateral knees. Patient is refusing to answer questions. Unable to obtain history at this time. EMS states that patient is intoxicated. Patient is also homeless per EMS. (PREETHI HOLGUIN APRN) Review of Systems: Review of Systems: Constitutional: Denies fever or chills Eyes: Denies change in visual acuity HENT: Denies nasal congestion or sore throat Respiratory: Denies cough or shortness of breath Cardiovascular: Denies chest pain or edema GI: Denies abdominal pain, nausea, vomiting, bloody stools or diarrhea : Denies dysuria Musculoskeletal: Denies back pain or joint pain Integument: Denies rash Neurologic: Denies headache, focal weakness or sensory changes Endocrine: Denies polyuria or polydipsia Lymphatic: Denies swollen glands Psychiatric: Denies depression or anxiety (PREETHI HOLGUIN APRN) Allergies: Allergies: Allergies Coded Allergies Type Severity Reaction Last Updated Verified No Known Drug Allergies 08/11/20 No (PREETHI HOLGUIN APRN) Physical Exam: PE: Constitutional: Well developed, well nourished, no acute distress, non-toxic appearance. [] HENT: Normocephalic, atraumatic, bilateral external ears normal, oropharynx moist, no oral exudates, nose normal. [] Eyes: PERRLA, EOMI, conjunctiva normal, no discharge. [] Neck: Normal range of motion, no tenderness, supple, no stridor. [] Cardiovascular:Heart rate regular rhythm, no murmur [] Lungs & Thorax: Bilateral breath sounds clear to auscultation [] Abdomen: Bowel sounds normal, soft, no tenderness, no masses, no pulsatile masses. [] Skin: Warm, dry, no erythema, no rash. [] Back: No tenderness, no CVA tenderness. [] Extremities: No tenderness, no cyanosis, no clubbing, ROM intact, no edema. [] Neurologic: Alert and oriented X 3, normal motor function, normal sensory function, no focal deficits noted. [] Psychologic: Affect normal, judgement normal, mood normal. [] (PREETHI HOLGUIN APRN) Current Patient Data: Labs: Laboratory Tests Test 04/22/21 19:45 04/22/21 19:49 04/22/21 20:15 White Blood Count 7.4 x10^3/uL (4.0-11.0) Red Blood Count 4.52 x10^6/uL (4.30-5.70) Hemoglobin 13.8 g/dL (13.0-17.5) Hematocrit 40.3 % (39.0-53.0) Mean Corpuscular Volume 89 fL (79-100) Mean Corpuscular Hemoglobin 31 pg (25-35) Mean Corpuscular Hemoglobin Concent 34 g/dL (31-37) Red Cell Distribution Width 13.3 % (11.5-14.5) Platelet Count 292 x10^3/uL (140-400) Neutrophils (%) (Auto) 65 % (31-73) Lymphocytes (%) (Auto) 25 % (24-48) Monocytes (%) (Auto) 9 % (0-9) Eosinophils (%) (Auto) 1 % (0-3) Basophils (%) (Auto) 1 % (0-3) Neutrophils # (Auto) 4.8 x10^3uL (1.8-7.7) Lymphocytes # (Auto) 1.8 x10^3/uL (1.0-4.8) Monocytes # (Auto) 0.6 x10^3/uL (0.0-1.1) Eosinophils # (Auto) 0.1 x10^3/uL (0.0-0.7) Basophils # (Auto) 0.0 x10^3/uL (0.0-0.2) Sodium Level 142 mmol/L (136-145) Potassium Level 3.7 mmol/L (3.5-5.1) Chloride Level 103 mmol/L (98-107) Carbon Dioxide Level 27 mmol/L (21-32) Anion Gap 12 (6-14) Blood Urea Nitrogen 16 mg/dL (8-26) Creatinine 0.9 mg/dL (0.7-1.3) Estimated GFR (Cockcroft-Gault) 93.0 BUN/Creatinine Ratio 18 (6-20) Glucose Level 99 mg/dL (70-99) Calcium Level 9.0 mg/dL (8.5-10.1) Total Bilirubin 0.7 mg/dL (0.2-1.0) Aspartate Amino Transferase (AST) 25 U/L (15-37) Alanine Aminotransferase (ALT) 43 U/L (16-63) Alkaline Phosphatase 96 U/L (46-116) Total Protein 7.1 g/dL (6.4-8.2) Albumin 4.2 g/dL (3.4-5.0) Albumin/Globulin Ratio 1.4 (1.0-1.7) Ethyl Alcohol Level 407 mg/dL (0-10) *H Glucose (Fingerstick) 93 mg/dL (70-99) Urine Collection Type U cath Urine Color Yellow Urine Clarity Clear Urine pH 6.0 Urine Specific [place] 1.010 Urine Protein Neg (NEG-TRACE) Urine Glucose (UA) Neg mg/dL (NEG) Urine Ketones (Stick) Neg mg/dL (NEG) Urine Blood Neg (NEG) Urine Nitrite Neg (NEG) Urine Bilirubin Neg (NEG) Urine Urobilinogen Dipstick 0.2 mg/dL (0.2 mg/dL) Urine Leukocyte Esterase Neg (NEG) Urine RBC 0 /HPF (0-2) Urine WBC 0 /HPF (0-4) Urine Squamous Epithelial Cells Occ /LPF Urine Renal Epithelial Cells Occ /LPF Urine Bacteria 0 /HPF (0-FEW) Urine Opiates Screen Neg (NEG) Urine Methadone Screen Neg (NEG) Urine Barbiturates Neg (NEG) Urine Phencyclidine Screen Neg (NEG) Urine Amphetamine/Methamphetamine Neg (NEG) Urine Benzodiazepines Screen Neg (NEG) Urine Cocaine Screen Neg (NEG) Urine Cannabinoids Screen Neg (NEG) Urine Ethyl Alcohol Pos (NEG) Vital Signs: Vital Signs Date Time Temp Pulse Resp B/P (MAP) Pulse Ox O2 Delivery O2 Flow Rate FiO2 04/22/21 19:43 98.2 75 16 126/49 92 Room Air (PREETHI HOLGUIN [employer] MACHINE) EKG: EKG: [] (PREETHI HOLGUIN APRN) Radiology/Procedures: Radiology/Procedures: [] (PREETHI HOLGUIN APRN) Heart Score: C/O Chest Pain: No Risk Factors: Risk Factors: DM, Current or recent (<one month) smoker, HTN, HLP, family history of CAD, obesity. Risk Scores: Score 0 - 3: 2.5% MACE over next 6 weeks - Discharge Home Score 4 - 6: 20.3% MACE over next 6 weeks - Admit for Clinical Observation Score 7 - 10: 72.7% MACE over next 6 weeks - Early Invasive Strategies (PREETHI HOLGUIN APRN) Course & Med Decision Making: Course & Med Decision Making Pertinent Labs and Imaging studies reviewed. (See chart for details) [] 40-year-old male presents after being found on the side of the road. EMS was called. Patient is refusing to answer any questions. Patient did state he wanted something to eat. Patient is homeless and intoxicated per EMS. All labs unremarkable. EtOH is 407. Patient given fluid bolus. CT of head and neck ordered due to patient's fall. Patient is alert and hemodynamically stable. All labs unremarkable. UA is negative for infection. UDS is positive for alcohol only. EtOH 407. Transfer patient care to Dr. Javier at [phone]. (PREETHI HOLGUIN APRN) Course & Med Decision Making Patient care handed off to me at checkout pending patient's ability to become clinically sober. Patient is also homeless and [facility]. Patient initially accepted but then shortly after packed all of his close and belongings back into his bag, put on his shoes and walked out of his room and said he was leaving. Said thank you to everyone but he was leaving. We did tell him that we called the mission and had a cab ride and we would get him over there so you have a place to sleep but he said it thank you but I am ready to go when I am leaving now. Asked the patient again to just wait as it was raining outside and he stated no thank you I am leaving now. (PRICILA JAVIER MD) Dragon Disclaimer: Dragon Disclaimer: This electronic medical record was generated, in whole or in part, using a voice recognition dictation system. (PREETHI HOLGUIN APRN) Departure Departure: Referrals: PCP,NO (PCP) PREETHI HOLGUIN APRN Apr 22, 2021 21:22 PRICILA JAVIER MD Apr 22, 2021 23:23
[2021-04-22] MEDS ORDERED: IV NORMAL SALINE 1,000ML 1,000 ML IV ONE (22:15)
[2021-04-22] MEDS ORDERED: IV RINGERS SOLUTION,LACTATED 1,000 ML IV ONE (23:00)
--- NOTE | 2021-04-22 23:10 | RAD ---
CT head without contrast. CT cervical spine without contrast. PQRS statement: CT scans at this facility use dose reduction including either automated exposure cont rol, iterative reconstructions, and /or weight based radiation dosing via mA and kV modification when appropriate to reduce radiation dose to as low as reasonably achievable. HISTORY: Fall injury. CT head findings: No intracranial hemorrhage, mass, hydrocephalus, extra-axial fluid collections or i nfarction. Partial opacification ethmoid sinuses. Orbits, mastoids and bones are unremarkable. IMPRESSION: No acute intracranial CT abnormality. CT cervical spine findings: Cranial cervical junction intact. Cervical vertebral body height and alig nment intact. No fracture of the cervical spine. Lung apices and paraspinal tissues are unremarkable. IMPRESSION: No acute osseous injury of the cervical spine. Electronically signed by: Lui Johnson MD (04/22/2021 11:08 PM) [facility]
== END 2021-04-22 23:23 | disposition left against medical advice (07) ==
LOC: ER 19:40
DX: S80.212A Abrasion, left knee, initial encounter (principal); S80.211A Abrasion, right knee, initial encounter; Z59.0 Homelessness; W18.39XA Other fall on same level, initial encounter; Y93.89 Activity, other specified; Y92.89 Other specified places as the place of occurrence of the external cause; Y99.8 Other external cause status
CPT/HCPCS: 36415; 70450; 72125; 80053; 80307; 81001; 82947; 85025; 96360; 99285; G0480; J7030

== ENCOUNTER 2021-05-12 19:52 | Emergency (ER) | payer SELFPAY ==
[~2021-05-12] VITALS: Ht 167.6 cm; Wt 61.8 kg
[2021-05-12 19:54] VITALS: BP 123/49
--- NOTE | 2021-05-12 20:00 | PHYS DOC ---
Past History Past Medical History: No Pertinent History Additional Past Medical Histor: PT WOULD NOT GIVE HISTORY Past Surgical History: No Surgical History Additional Past Surgical Histo: LEFT WRIST, RIGHT FOOT Smoking: Less than 1pk/day Alcohol Use: None Drug Use: Amphetamine, Marijuana, Methamphetamine, Other Adult General Chief Complaint Chief Complaint: DEHYDRATION HPI HPI Patient is a 40-year-old homeless male who presents to the emergency department with a chief complaint of wanting something to eat, drink and a ride to the [facility]. Denies any medical complaints, stating that he just called EMS because he does not have anywhere else to go. Denies any headache, chest pain, shortness of breath, abdominal pain, nausea, vomiting. Denies any drug use. Review of Systems Review of Systems Review of systems otherwise unremarkable except noted in HPI Allergies Allergies Allergies Coded Allergies Type Severity Reaction Last Updated Verified No Known Drug Allergies 05/12/21 No Physical Exam Physical Exam Constitutional: Well developed, well nourished, no acute distress, non-toxic appearance. [] HENT: Normocephalic, atraumatic, bilateral external ears normal, oropharynx moist, no oral exudates, nose normal. [] Eyes: PERRLA, EOMI, conjunctiva normal, no discharge. [] Neck: Normal range of motion, no tenderness, supple, no stridor. [] Cardiovascular:Heart rate regular rhythm, no murmur [] Lungs & Thorax: Bilateral breath sounds clear to auscultation [] Abdomen: soft, no tenderness, no masses, no pulsatile masses. [] Skin: Warm, dry, no erythema, no rash. [] Back: No tenderness, no CVA tenderness. [] Extremities: No tenderness, no cyanosis, no clubbing, ROM intact, no edema. [] Neurologic: Alert and oriented X 3, no focal deficits noted. [] Psychologic: Affect normal, judgement normal, mood normal. [] EKG EKG [] Radiology/Procedures Radiology/Procedures [] Heart Score C/O Chest Pain: No Risk Factors: Risk Factors: DM, Current or recent (<one month) smoker, HTN, HLP, family history of CAD, obesity. Risk Scores: Risk Factors: DM, Current or recent (<one month) smoker, HTN, HLP, family history of CAD, obesity. Course & Med Decision Making Course & Med Decision Making Patient is a 40-year-old homeless male who presents to the emergency department stating he is hungry, thirsty and does not have anywhere else to go and like to go to the [facility]. Vital signs not concerning. Physical exam noted above. Patient given a meal, something to drink, Tylenol and ibuprofen. Patient grateful. Asked to be given a cab and taken to the [facility] as he has no where else to go. [] Dragon Disclaimer Dragon Disclaimer This electronic medical record was generated, in whole or in part, using a voice recognition dictation system. Departure Departure: Impression: Primary Impression: Homeless single person Disposition: HOME / SELF CARE / HOMELESS Condition: GOOD Referrals: PCP,NO (PCP) INGE OLSON MD Additional Instructions: Thank you for coming into the emergency department tonight and allowing us to take care of you. You are given something to eat and drink, some Tylenol and ibuprofen in the emergency department and a place to rest until you are given a cab ride to your destination of choice. PRICILA JAVIER MD May 12, 2021 20:00
[2021-05-12] MEDS ORDERED: ACETAMINOPHEN 500 MG TABLET PO ONE (20:15)
[2021-05-12] MEDS ORDERED: IBUPROFEN 600 MG TABLET. PO ONE (20:15)
== END 2021-05-12 20:40 | disposition home or self-care (01) ==
LOC: ER 19:52
DX: Z59.0 Homelessness (principal); F17.200 Nicotine dependence, unspecified, uncomplicated
CPT/HCPCS: 99283

== ENCOUNTER 2021-06-19 16:16 | Emergency (ER) | payer SELFPAY ==
[~2021-06-19] VITALS: Ht 167.6 cm; Wt 61.8 kg
[2021-06-19] MEDS ORDERED: MVI, ADULT NO.4 WITH VIT K 10 ML, FOLIC ACID INJ 1 MG, THIAMINE INJ 100 MG in IV NORMAL... IV ONE (16:30)
--- NOTE | 2021-06-19 16:42 | PHYS DOC ---
Past History Past Medical History: No Pertinent History Additional Past Medical Histor: PT WOULD NOT GIVE HISTORY (KENDY GOVEA APRN) Past Surgical History: No Surgical History Additional Past Surgical Histo: LEFT WRIST, RIGHT FOOT (KENDY GOVEA APRN) Smoking: Less than 1pk/day Alcohol Use: Heavy Drug Use: Amphetamine, Marijuana, Methamphetamine, Other (KENDY GOVEA APRN) General Adult EDM: Chief Complaint: HOMELESS HPI: HPI: Patient is a 40-year-old male who presents to the ER by EMS for being homeless and possibly intoxicated. Per EMS patient was passed out at the bar inside at the local [place] and EMS was called for him. No injuries were reported. Patient reports that he only drank 1-2 beers today. He denies any drug use. He is alert and oriented x4 and vital signs are stable. Patient has slurred speech is is uncooperative with patient care as well as answering questions. Patient states that he is homeless. Patient's only complaint is chronic right collarbone pain from a previous collarbone fracture 4 months ago. Patient is yelling that he wants a pain shot. (KENDY GOVEA APRN) Review of Systems: Review of Systems: 14 body systems of the review of systems have been reviewed. See HPI for pertinent positive and negative responses, otherwise all other systems are negative, nonpertinent or noncontributory (KENDY GOVEA APRN) Current Medications: Current Meds: Current Medications Medications (Trade) Dose Ordered Sig/Hari Start Time Stop Time Status Last Admin Dose Admin Multivitamins/ Minerals 10 ml/ Folic Acid 1 mg/ Thiamine HCl 100 mg/Sodium Chloride 1,011.3 ml @ 1,000.187 mls/hr 1X ONCE 06/19/21 16:30 06/19/21 17:30 (KENDY GOVEA APRN) Allergies: Allergies: Allergies Coded Allergies Type Severity Reaction Last Updated Verified No Known Drug Allergies 05/12/21 No (KENDY GOVEA APRN) Physical Exam: PE: Constitutional: Well developed, well nourished, no acute distress, non-toxic appearance. [] HENT: Normocephalic, atraumatic, bilateral external ears normal, oropharynx moist, no oral exudates, nose normal. [] Eyes: PERRL, EOMI, conjunctiva normal, no discharge. [] Neck: Normal range of motion, no stridor Cardiovascular:Heart rate regular rhythm, no murmur [] Lungs & Thorax: Bilateral breath sounds clear to auscultation [] Abdomen: Bowel sounds normal, soft, no tenderness, no masses, no pulsatile masses. [] Skin: Warm, dry, no erythema, no rash. [] Back: Normal range of motion Extremities: No tenderness, no cyanosis, no clubbing, ROM intact, no edema. [] Right upper extremity: good range of motion and neuro intact to right arm, no obvious wounds, no pain with palpation of right clavicle or shoulder joint Neurologic: Alert and oriented X 3, normal motor function, normal sensory function, no focal deficits noted. [] Psychologic: Affect normal, judgement normal, mood normal. [] (KENDY GOVEA APRN) Current Patient Data: Vital Signs: Vital Signs Date Time Temp Pulse Resp B/P (MAP) Pulse Ox O2 Delivery O2 Flow Rate FiO2 06/19/21 16:24 98.2 78 16 110/56 (74) 98 (KENDY GOVEA APRN) EKG: EKG: [] (KENDY GOVEA APRN) Radiology/Procedures: Radiology/Procedures: []PROCEDURE: CT HEAD AND CERVICAL SPINE WO Exam: CT head and cervical spine INDICATION: Slurred speech TECHNIQUE: Sequential axial images through the head and cervical spine were obtained without the administration of IV contrast. Exposure: One or more of the following in the visualized dose reduction techniques were utilized for this examination: 1. Automated exposure control 2. Adjustment of the MA and/or KV according to patient size 3. Use of iterative of reconstructive technique Comparisons: None FINDINGS: Head: No focal parenchymal lesion or hemorrhage is identified. There is no midline shift or sulcal effacement. No acute vascular territory infarction is identified. Sage-white distinction is preserved. The ventricular system is within normal limits without compression hydrocephalus. The basal cisterns are well maintained. The visualized portions of the paranasal sinuses and mastoid air cells are well- pneumatized. No acute fractures. Cervical spine: Straightening of cervical spine which may positional. Vertebral body heights are well-maintained. Fracture to the cervical spine is not identified. No significant spondylotic change in the cervical spine. Visualized paraspinal soft tissues are unremarkable. IMPRESSION: 1. No acute intracranial abnormality. 2. Negative CT C-spine for acute traumatic injury. Electronically signed by: Loree Lee MD (06/19/2021 5:42 PM) [facility] DICTATED AND SIGNED BY: LOREE LEE MD DATE: 06/19/211735 CC: KENDY GOVEA APRN; PCP,[facility] ~MTH0 0 (KENDY GOVEA APRN) Heart Score: C/O Chest Pain: N/A Risk Factors: Risk Factors: DM, Current or recent (<one month) smoker, HTN, HLP, family history of CAD, obesity. Risk Scores: Score 0 - 3: 2.5% MACE over next 6 weeks - Discharge Home Score 4 - 6: 20.3% MACE over next 6 weeks - Admit for Clinical Observation Score 7 - 10: 72.7% MACE over next 6 weeks - Early Invasive Strategies (KENDY GOVEA APRN) Course & Med Decision Making: Course & Med Decision Making Pertinent Labs and Imaging studies reviewed. (See chart for details) Patient presents to the emergency department for being homeless and intoxicated at a bar. Blood work performed in the ER and patient was given a banana bag. He states he only drank 2 beers today. Patient is mostly uncooperative with questioning and assessment. CBC unremarkable. Patient was noted to have hypokalemia, this was replaced in the emergency department. Patient treated with a banana bag. Patient was given food and was able to tolerate p.o. intake. Patient was road tested in the ER and was able to ambulate with a steady gait. Patient continues to be alert and oriented x4. I discussed patient findings with him. He was given a list of resources available to him. (KENDY GOVEA APRN) Dragon Disclaimer: Dragon Disclaimer: This electronic medical record was generated, in whole or in part, using a voice recognition dictation system. (KENDY GOVEA APRN) Attending Co-Sign The patient was seen and interviewed as well as examined at the bedside. The chart was reviewed. The case was discussed. Agree with the plan of care. (CAMDEN RAMIREZ DO) Departure Departure: Impression: Primary Impression: Alcohol intoxication Qualified Codes: F10.920 - Alcohol use, unspecified with intoxication, uncomplicated Disposition: 01 HOME / SELF CARE / HOMELESS Condition: GOOD Referrals: PCP,NO (PCP) Patient Instructions: Alcohol Intoxication Additional Instructions: You were seen in the emergency department today for alcohol intoxication. You were noted to have a low potassium level this was replaced in the ER with a supplement. Continue to eat potassium rich foods at home which include green leafy vegetables and bananas. You should discontinue your alcohol use. If in the future you do seek detox for your alcohol use you can return to the emerge ncy department. Please return to the emergency department if you have any suicidal or homicidal ideation. You were given a list of resources that can help you with finding healthcare and potential detox. Please follow-up with these resources. Please return to the emergency department if you have any new or worsening concerns such as chest pain, shortness of breath, intractable nausea or vomiting, weakness, lightheadedness or dizziness. EMERGENCY DEPARTMENT GENERAL DISCHARGE INSTRUCTIONS Thank you for coming to [facility] (ED) today and trusting us with you care. We trust that you had a positivie experience in our Emergency Department. If you wish to speak to the department management, you may call the director at [phone]. YOUR FOLLOW UP INSTRUCTIONS ARE FOLLOWS: 1. Do you have a private Doctor? If you do not have a private doctor, please ask for a resource list of physicians or clinics that may be able to assist you with follow up care. 2. The Emergency Physician has interpreted your x-rays. The X-Ray specialist will also review them. If there is a change in the findings, you will be notified in 48 hours when at all possible. 3. A lab test or culture has been done, your results will be reviewed and you will be notified if you need a change in treatment. ADDITIONAL INSTRUCTIONS AND INFORMATION: 1. Your care today has been supervised by a physician who is specially trained in emergency care. Many problems require more than one evaluation for a complete diagnosis and treatment. We recommend that you schedule your follow up appointment as recommended to ensure complete treatment of you illness or injury. If you are unable to obtain follow up care and continue to have a problem, or if your condition worsens, we recommend that you return to the ED. 2. We are not able to safely determine your condition over the phone nor are we able to give sound medical advice over the phone. For these safety reasons, if you call for medical advice we will ask you to come to the ED for further evaluation. 3. If you have any questions regarding these discharge instructions please call the ED at [phone]. SAFETY INFORMATION: In the interest of safety, wellness, and injury prevention; we encourage you to wear your sealbelt, if you smoke; quite smoking, and we encourage family to use a protective helmet for bicycling and other sporting events that present an increased risk for head injury. IF YOUR SYMPTOMS WORSEN OR NEW SYMPTOMS DEVELOP, OR YOU HAVE CONCERNS ABOUT YOUR CONDITION; OR IF YOUR CONDITION WORSENS WHILE YOU ARE WAITING FOR YOUR FOLLOW UP APPOINTMENT; EITHER CONTACT YOUR PRIMARY CARE DOCTOR, THE PHYSICIAN WHOSE NAME AND NUMBER YOU WERE GIVEN, OR RETURN TO THE ED IMMEDIATELY. KENDY GOVEA APRN Jun 19, 2021 16:42 CAMDEN RAMIREZ DO Jun 20, 2021 05:49
[2021-06-19 17:09] LABS: BASO # 0.1 x10^3/uL (0.0-0.2); BASO % 1 % (0-3); EOS # 0.2 x10^3/uL (0.0-0.7); EOS % 2 % (0-3); HEMATOCRIT 39.8 % (39.0-53.0); HEMOGLOBIN 13.6 g/dL (13.0-17.5); LYMPH # 2.7 x10^3/uL (1.0-4.8); LYMPH % 30 % (24-48); MEAN CORPUSCULAR HEMOGLOBIN 32 pg (25-35); MEAN CORPUSCULAR HGB CONC 34 g/dL (31-37); MEAN CORPUSCULAR VOLUME 94 fL (79-100); MONO # 0.8 x10^3/uL (0.0-1.1); MONO % 9 % (0-9); NEUT # 5.2 x10^3uL (1.8-7.7); NEUT % 58 % (31-73); PLATELET COUNT 323 x10^3/uL (140-400); RED BLOOD COUNT 4.26 x10^6/uL (4.30-5.70); RED CELL DISTRIBUTION WIDTH 15.2 % (11.5-14.5)
[2021-06-19 17:14] LABS: CREATININE 0.9 mg/dL (0.7-1.3); POTASSIUM 3.3 mmol/L (3.5-5.1)
[2021-06-19 17:20] LABS: ALBUMIN/GLOBULIN RATIO 1.3 (1.0-1.7); TOTAL BILIRUBIN 1.6 mg/dL (0.2-1.0)
--- NOTE | 2021-06-19 17:45 | RAD ---
Exam: CT head and cervical spine INDICATION: Slurred speech TECHNIQUE: Sequential axial images through the head and cervical spine were obtained without the admi nistration of IV contrast. Exposure: One or more of the following in the visualized dose reduction techniques were utilized for this examination: 1. Automated exposure control 2. Adjustment of the MA and/or KV according to patient size 3. Use of iterative of reconstructive technique Comparisons: None FINDINGS: Head: No focal parenchymal lesion or hemorrhage is identified. There is no midline shift or sulcal effaceme nt. No acute vascular territory infarction is identified. Sage-white distinction is preserved. The ventricular system is within normal limits without compression hydrocephalus. The basal cisterns are well maintained. The visualized portions of the paranasal sinuses and mastoid air cells are well-pneumatized. No acute fractures. Cervical spine: Straightening of cervical spine which may positional. Vertebral body heights are well-maintained. Fracture to the cervical spine is not identified. No significant spondylotic change in the cervical spine. Visualized paraspinal soft tissues are unremarkable. IMPRESSION: 1. No acute intracranial abnormality. 2. Negative CT C-spine for acute traumatic injury. Electronically signed by: Loree Otto MD (06/19/2021 5:42 PM) [facility]
[2021-06-19] MEDS ORDERED: POTASSIUM CHLORIDE 20 MEQ TABLET.ER. PO ONE (18:00)
[2021-06-19 18:44] VITALS: BP 104/66
== END 2021-06-19 18:56 | disposition home or self-care (01) ==
LOC: ER 16:16
DX: F10.229 Alcohol dependence with intoxication, unspecified (principal); F17.200 Nicotine dependence, unspecified, uncomplicated; Z59.00 Homelessness unspecified; Y90.8 Blood alcohol level of 240 mg/100 ml or more
CPT/HCPCS: 36415; 70450; 72125; 80053; 85025; 96365; 99285; G0480; J7030

== ENCOUNTER 2021-06-23 17:48 | Emergency (ER) | payer SELFPAY ==
[~2021-06-23] VITALS: Ht 167.6 cm; Wt 61.8 kg
[2021-06-23 18:09] VITALS: BP 117/73
--- NOTE | 2021-06-23 18:30 | PHYS DOC ---
Past History Past Medical History: No Pertinent History Additional Past Medical Histor: PT WOULD NOT GIVE HISTORY Past Surgical History: No Surgical History Additional Past Surgical Histo: LEFT WRIST, RIGHT FOOT Smoking: Less than 1pk/day Alcohol Use: Heavy Drug Use: Amphetamine, Marijuana, Methamphetamine, Other Adult General Chief Complaint Chief Complaint: ALCOHOL INTOXICATION HPI HPI Left without being seen Allergies Allergies Allergies Coded Allergies Type Severity Reaction Last Updated Verified No Known Drug Allergies 05/12/21 No Current Patient Data Vital Signs Vital Signs Date Time Temp Pulse Resp B/P (MAP) Pulse Ox O2 Delivery O2 Flow Rate FiO2 06/23/21 18:09 98.4 64 16 117/73 (88) 98 Room Air EKG EKG [] Radiology/Procedures Radiology/Procedures [] Heart Score C/O Chest Pain: N/A Risk Factors: Risk Factors: DM, Current or recent (<one month) smoker, HTN, HLP, family history of CAD, obesity. Risk Scores: Risk Factors: DM, Current or recent (<one month) smoker, HTN, HLP, family history of CAD, obesity. Course & Med Decision Making Course & Med Decision Making Left without being seen [] Dragon Disclaimer Dragon Disclaimer This electronic medical record was generated, in whole or in part, using a voice recognition dictation system. Departure Departure: Impression: Primary Impression: Patient left without being seen Disposition: 07 LEFT WITHOUT BEING SEEN Condition: STABLE Referrals: [facility] (PCP) PRICILA JAVIER MD Jun 23, 2021 18:30
== END 2021-06-23 18:28 | disposition left against medical advice (07) ==
LOC: ER 17:48
DX: F10.129 Alcohol abuse with intoxication, unspecified (principal); Z53.21 Procedure and treatment not carried out due to patient leaving prior to being seen by health care provider; Y90.8 Blood alcohol level of 240 mg/100 ml or more